=== PATIENT | female | born 1965 | race Caucasian/White ===

== ENCOUNTER → 2017-01-24 | Outpatient (CLI) | payer OTHER ==
[~2017-01-24] MED LIST: ALPR-138 PO; BETH25TA3 PO; ESTR.1T TD; FERR324T4 PO; FIORTAB4 PO; NADO1TAB17 PO; OXYC-360 PO; SYNT25TA PO
[2017-01-24 09:54] LABS: HDL CHOLESTEROL 55.3 MG/DL (40.0-60.0)
== END ==
LOC: PLAB 07:30
PROVIDERS: ATTEND Family Medicine
DX: E78.5 Hyperlipidemia, unspecified (principal); E03.2 Hypothyroidism due to medicaments and other exogenous substances
CPT/HCPCS: 80061; 84443

== ENCOUNTER → 2017-02-09 | Outpatient (CLI) | payer OTHER ==
[2017-02-09 09:13] LABS: BASOPHIL # 0.1 TH/MM3 (0-0.2); BASOPHIL % 0.9 % (0.0-2.0); EOSINOPHIL # 0.2 TH/MM3 (0-0.4); EOSINOPHIL % 2.7 % (0.0-4.0); HEMATOCRIT 40.8 % (35.0-46.0); HEMO FLAGS DIFF FINAL; LYMPH % 45.2 % (9.0-44.0); MEAN CELL VOLUME 88.1 FL (80.0-100.0); MEAN CORPUSCULAR HEMOGLOBIN 28.9 PG (27.0-34.0); MEAN CORPUSCULAR HGB CONC 32.8 % (32.0-36.0); MONO % 6.2 % (0.0-8.0); PLATELET COUNT 323 TH/MM3 (150-450); RED BLOOD COUNT 4.63 MIL/MM3 (4.00-5.30); WHITE BLOOD COUNT 6.7 TH/MM3 (4.0-11.0)
[2017-02-09 10:43] LABS: CHLORIDE 105 MEQ/L (98-107); POTASSIUM 3.6 MEQ/L (3.5-5.1); SODIUM (NA) 140 MEQ/L (136-145)
[2017-02-09 11:33] LABS: ANION GAP 6 MEQ/L (5-15); AST (GOT) 30 U/L (15-37); BICARBONATE 28.7 MEQ/L (21.0-32.0); BLOOD UREA NITROGEN 22 MG/DL (7-18); GLOMERULAR FILTRATION RATE 78 ML/MIN (>89); GLUCOSE,FASTING 97 MG/DL (74-99)
[2017-02-09 11:38] LABS: ALKALINE PHOSPHATASE 81 U/L (45-117); ALT (GPT) 53 U/L (10-53); TOTAL BILIRUBIN ADULT 0.2 MG/DL (0.2-1.0)
== END ==
LOC: PLAB 07:35
PROVIDERS: ATTEND Family Medicine
DX: R53.81 Other malaise (principal); R53.83 Other fatigue
CPT/HCPCS: 36415; 80053; 85025

== ENCOUNTER 2017-04-21 13:43 | Emergency (ER) | payer OTHER ==
[~2017-04-21] VITALS: Ht 160 cm; Wt 70.4 kg
[2017-04-21 13:58] VITALS: BP 174/88; PULSE 97; RESP 16; O2SAT 100
--- NOTE | 2017-04-21 14:23 | PD ---
HPI Chief Complaint: Cardiac Complaint Time Seen by Provider: 13:58 Travel History International Travel<30 days: No Contact w/Intl Traveler<30days: No Traveled to known affect area: No History of Present Illness HPI Is a 51 year-old woman who presents to the emergency department complaining of palpitations. She is a history of anxiety and panic attacks. She feels knocked over the past 3 months or so. She states over the past 3 days she's had increased trouble palpitations. She takes propranolol for increased heart rate. She states she called [facility] this morning and they came out and checked. She had a heart rate of 127. Feeling generally worse including headaches, belly pains, and feeling sick. History Past Medical History Narrative Medical Panic attacks History rapid heart rate Low thyroid Migraines Social History Tobacco Use: No Allergies-Medications (Allergen,Severity, Reaction): Coded Allergies: Erythromycin (Verified Allergy, Severe, 04/21/17) Reported Meds & Prescriptions Reported Meds & Active Scripts Active Reported Xanax (Alprazolam) 0.5 Mg Tab 0.5 Mg PO Q8H PRN Lidocaine Viscous Liq 2 % Liqd 5 Ml SWISH-SWAL DIRECTED PRN Zovirax (Acyclovir) 800 Mg Tab 800 Mg PO TID Fioricet (Nhvcfngrbl-Pydlncthwrppj-Gdjvywun) 50-300-40 Mg Cap 1 Cap PO Q8HR PRN Norvasc (Amlodipine Besylate) 5 Mg Tab 5 Mg PO DAILY Urecholine (Bethanechol Chloride) 25 Mg Tab 12.5 Mg PO 5 TIMES A DAY Levothyroxine (Levothyroxine Sodium) 88 Mcg Tab 88 Mcg PO DAILY Propranolol (Propranolol HCl) 20 Mg Tab 20 Mg PO Q12HR Review of Systems Except as stated in HPI: all other systems reviewed are Neg Physical Exam Narrative GENERAL: Well-appearing 51-year-old woman, no acute distress. SKIN: Focused skin assessment warm/dry. HEAD: Atraumatic. Normocephalic. EYES: Pupils equal and round. No scleral icterus. No injection or drainage. ENT: No nasal bleeding or discharge. Mucous membranes pink and moist. NECK: Trachea midline. No JVD. CARDIOVASCULAR: Regular rate and rhythm. No murmur appreciated. RESPIRATORY: No accessory muscle use. Clear to auscultation. Breath sounds equal bilaterally. GASTROINTESTINAL: Abdomen soft, non-tender, nondistended. Hepatic and splenic margins not palpable. MUSCULOSKELETAL: No obvious deformities. No clubbing. No cyanosis. No edema. NEUROLOGICAL: Awake and alert. No obvious cranial nerve deficits. Motor grossly within normal limits. Normal speech. PSYCHIATRIC: Appropriate mood and affect; insight and judgment normal. Data Data Last Documented VS Vital Signs Date Time Temp Pulse Resp B/P Pulse Ox O2 Delivery O2 Flow Rate FiO2 04/21/17 14:13 71 16 99 Room Air 04/21/17 13:58 174/88 Orders Complete Blood Count With Diff (04/21/17 14:19) Comprehensive Metabolic Panel (04/21/17 14:19) Thyroid Stimulating Hormone (04/21/17 14:19) Iv Access Insert/Monitor (04/21/17 14:19) Electrocardiogram (04/21/17 ) Sodium Chlor 0.9% 1000 Ml Inj (Ns 1000 M (04/21/17 14:30) Alprazolam (Xanax) (04/21/17 14:30) Labs Laboratory Tests Test 04/21/17 13:00 White Blood Count 6.2 TH/MM3 Red Blood Count 5.12 MIL/MM3 Hemoglobin 14.5 GM/DL Hematocrit 44.0 % Mean Corpuscular Volume 85.8 FL Mean Corpuscular Hemoglobin 28.3 PG Mean Corpuscular Hemoglobin 33.0 % Concent Red Cell Distribution Width 12.1 % Platelet Count 447 TH/MM3 Mean Platelet Volume 7.7 FL Neutrophils (%) (Auto) 49.2 % Lymphocytes (%) (Auto) 38.2 % Monocytes (%) (Auto) 9.6 % Eosinophils (%) (Auto) 2.2 % Basophils (%) (Auto) 0.8 % Neutrophils # (Auto) 3.1 TH/MM3 Lymphocytes # (Auto) 2.4 TH/MM3 Monocytes # (Auto) 0.6 TH/MM3 Eosinophils # (Auto) 0.1 TH/MM3 Basophils # (Auto) 0.0 TH/MM3 CBC Comment DIFF FINAL Differential Comment Sodium Level 138 MEQ/L Potassium Level 3.4 MEQ/L Chloride Level 103 MEQ/L Carbon Dioxide Level 27.5 MEQ/L Anion Gap 8 MEQ/L Blood Urea Nitrogen 12 MG/DL Creatinine 0.97 MG/DL Estimat Glomerular Filtration 60 ML/MIN Rate Random Glucose 106 MG/DL Calcium Level 9.2 MG/DL Total Bilirubin 0.2 MG/DL Aspartate Amino Transf 17 U/L (AST/SGOT) Alanine Aminotransferase 22 U/L (ALT/SGPT) Alkaline Phosphatase 65 U/L Total Protein 7.9 GM/DL Albumin 4.2 GM/DL Thyroid Stimulating Hormone 1.570 uIU/ML 3rd Gen [facility] Medical Decision Making Medical Screen Exam Complete: Yes Emergency Medical Condition: Yes Interpretation(s) LABS: CBC is unremarkable. CMP is unremarkable. TSH is normal. Differential Diagnosis Anxiety, palpitations, hyperthyroid, ABNORMALITY, OTHER Narrative Course Medical decision-making 51 year-old woman with anxiety and palpitations. Looks well. We'll check her thyroid, electrolytes, give her some IV fluid. Outpatient follow-up. Diagnosis Primary Impression: Palpitations Additional Impression: Anxiety Additional Instructions: Follow-up with your primary doctor in 2-4 days. Return to the emergency department for any new or worsening symptoms. Med/Other Pt SpecificInfo: Prescription(s) given Disposition: 01 DISCHARGE HOME Condition: Stable Sandro Harmon MD Apr 21, 2017 14:23
[2017-04-21] MEDS ORDERED: SODIUM CHLOR 0.9% 1000 ML INJ 1,000 ML IV SCH (14:30)
[2017-04-21] MEDS ORDERED: ALPRAZolam 1 MG TAB PO ONE (14:30)
[2017-04-21] MEDS ORDERED: ALPRAZolam 0.5 MG TAB PO ONE (14:30)
[2017-04-21 14:31] LABS: AUTOMATED NEUTROPHIL # 3.1 TH/MM3 (1.8-7.7); BASOPHIL % 0.8 % (0.0-2.0); EOSINOPHIL # 0.1 TH/MM3 (0-0.4); EOSINOPHIL % 2.2 % (0.0-4.0); HEMO FLAGS DIFF FINAL; LYMPH % 38.2 % (9.0-44.0); LYMPHOCYTE # 2.4 TH/MM3 (1.0-4.8); MEAN CELL VOLUME 85.8 FL (80.0-100.0); MEAN CORPUSCULAR HEMOGLOBIN 28.3 PG (27.0-34.0); MONO % 9.6 % (0.0-8.0); NEUT % 49.2 % (16.0-70.0); PLATELET COUNT 447 TH/MM3 (150-450); RED BLOOD COUNT 5.12 MIL/MM3 (4.00-5.30); RED CELL DISTRIBUTION WIDTH 12.1 % (11.6-17.2); WHITE BLOOD COUNT 6.2 TH/MM3 (4.0-11.0)
[2017-04-21 14:41] LABS: CHLORIDE 103 MEQ/L (98-107); POTASSIUM 3.4 MEQ/L (3.5-5.1); SODIUM (NA) 138 MEQ/L (136-145)
[2017-04-21 14:45] LABS: ANION GAP 8 MEQ/L (5-15); BICARBONATE 27.5 MEQ/L (21.0-32.0); BLOOD UREA NITROGEN 12 MG/DL (7-18)
[2017-04-21] MEDS ORDERED: BUTA1CAP PO (14:46)
[2017-04-21] MEDS ORDERED: LEVO88TA2 PO (14:46)
[2017-04-21] MEDS ORDERED: ACYC-101 PO (14:46)
[2017-04-21] MEDS ORDERED: ALPR.5 PO (14:46)
[2017-04-21] MEDS ORDERED: AMLO5 PO (14:46)
[2017-04-21] MEDS ORDERED: PROP20TA3 PO (14:46)
[2017-04-21] MEDS ORDERED: LIDO1SOL8 SWISH-SWAL (14:46)
[2017-04-21] MEDS ORDERED: BETH25 PO (14:46)
[2017-04-21 14:48] LABS: ALT (GPT) 22 U/L (10-53); AST (GOT) 17 U/L (15-37); GLOMERULAR FILTRATION RATE 60 ML/MIN (>89)
[2017-04-21 14:49] LABS: TOTAL BILIRUBIN ADULT 0.2 MG/DL (0.2-1.0)
[2017-04-21 14:51] LABS: ALKALINE PHOSPHATASE 65 U/L (45-117)
[2017-04-21 15:50] VITALS: BP 111/69
--- NOTE | 2017-04-22 15:00 | EKG ---
Date Performed: 04/21/2017 Time Performed: 13:51:11 PTAGE: 51 years EKG: Sinus rhythm NONSPECIFIC T-WAVE ABNORMALITY Compared to previous tracing, ST-T changes are new. BORDERLINE ECG IN TERPRETATION BASED ON A DEFAULT AGE OF 40 YEARS NO PREVIOUS TRACING DOCTOR: Azar Cantu Interpretating Date/Time 04/22/2017 14:58:08
== END 2017-04-21 16:05 | disposition home or self-care (01) ==
LOC: PHED 13:43
DX: R00.2 Palpitations (principal); F41.0 Panic disorder [episodic paroxysmal anxiety]; R10.9 Unspecified abdominal pain; R51 Headache
CPT/HCPCS: 80053; 84443; 85025; 93005; 96360; 99284; J7030

== ENCOUNTER 2017-05-17 20:20 | Emergency (ER) | payer OTHER ==
[~2017-05-17] VITALS: Ht 160 cm; Wt 68.0 kg
[~2017-05-17 20:20] MED LIST changes: +ACYC-101 PO; -ALPR-138 PO; +ALPR.5 PO; +AMLO5 PO; +BETH25 PO; -BETH25TA3 PO; +BUTA1CAP PO; -ESTR.1T TD; -FERR324T4 PO; -FIORTAB4 PO; +LEVO88TA2 PO; +LIDO1SOL8 SWISH-SWAL; -NADO1TAB17 PO; -OXYC-360 PO; +PROP20TA3 PO; -SYNT25TA PO
[2017-05-17 20:28] VITALS: BP 135/67; PULSE 78; RESP 20; TEMP 98.4; O2SAT 100
--- NOTE | 2017-05-17 20:33 | PD ---
HPI Chief Complaint: Cardiac Complaint Time Seen by Provider: 20:29 Travel History International Travel<30 days: No Contact w/Intl Traveler<30days: No Traveled to known affect area: No History of Present Illness HPI 51-year-old female here for evaluation of heart palpitations. The patient reports that today she has felt her heart racing, then slow down. She has had similar episodes in the past, and was seen in the emergency department last month for the same. 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 Mueller and is on propanolol. No known history of coronary artery disease. She also has history of anxiety and is on Xanax. She took a Xanax at around 4:00 PM today which seemed to improve her symptoms, however it around 7:00 PM her palpitations return. Currently she feels fine. No chest pain or dyspnea. No history of DVT or PE. No fevers or recent illness. PFSH Past Medical History Anxiety: Yes (severe panic/anxiety disorder) Heart Rhythm Problems: Yes (irregular heartbeat) Cardiovascular Problems: Yes (HTN, irreg heartburn) Diminished Hearing: No GERD: Yes Hypertension: Yes Thyroid Disease: Yes (hypothyroidism) Past Surgical History Hysterectomy: Yes (2006) Social History Alcohol Use: No Tobacco Use: No Substance Use: No Allergies-Medications (Allergen,Severity, Reaction): Coded Allergies: erythromycin base (Verified Allergy, Severe, 05/17/17) Reported Meds & Prescriptions Reported Meds & Active Scripts Active Reported Estrace Vaginal (Estradiol) 0.01% Cream 1 Appl VAGINAL HS Estradiol 0.5 Mg Tab 0.5 Mg PO DAILY Aspirin 81 Mg Chew 81 Mg CHEW DAILY Xanax (Alprazolam) 0.5 Mg Tab 0.5 Mg PO Q8H PRN Lidocaine Viscous Liq 2 % Liqd 5 Ml SWISH-SWAL DIRECTED PRN Zovirax (Acyclovir) 800 Mg Tab 800 Mg PO TID Fioricet (Hdnsyibkfe-Tqkewfwivxmsj-Wfioqnqo) 50-300-40 Mg Cap 1 Cap PO Q8HR PRN Norvasc (Amlodipine Besylate) 5 Mg Tab 5 Mg PO DAILY Urecholine (Bethanechol Chloride) 25 Mg Tab 12.5 Mg PO 5 TIMES A DAY Levothyroxine (Levothyroxine Sodium) 88 Mcg Tab 88 Mcg PO DAILY Propranolol (Propranolol HCl) 20 Mg Tab 20 Mg PO Q12HR Review of Systems Except as stated in HPI: all other systems reviewed are Neg Physical Exam Narrative GENERAL: Well-developed, well-nourished, comfortable, no acute distress SKIN: Focused skin assessment warm/dry. HEAD: Atraumatic. Normocephalic. EYES: Pupils equal and round. No scleral icterus. No injection or drainage. ENT: Mucous membranes pink and moist. NECK: Trachea midline. No JVD. CARDIOVASCULAR: Regular rate and rhythm. No murmur appreciated. Distal pulses brisk and equal bilaterally. RESPIRATORY: No accessory muscle use. Clear to auscultation. Breath sounds equal bilaterally. GASTROINTESTINAL: Abdomen soft, non-tender, nondistended. MUSCULOSKELETAL: No obvious deformities. No clubbing. No cyanosis. No edema. NEUROLOGICAL: Awake and alert. No obvious cranial nerve deficits. Motor grossly within normal limits. Normal speech. PSYCHIATRIC: Appropriate mood and affect; insight and judgment normal. Data Data Last Documented VS Vital Signs Date Time Temp Pulse Resp B/P (MAP) Pulse Ox O2 Delivery O2 Flow Rate FiO2 05/17/17 21:29 98.3 67 16 126/71 (89) 99 Room Air Orders Orders Basic Metabolic Panel (Bmp) (05/17/17 20:41) Ckmb (Isoenzyme) Profile (05/17/17 20:41) Complete Blood Count With Diff (05/17/17 20:41) Magnesium (Mg) (05/17/17 20:41) Prothrombin Time / Inr (Pt) (05/17/17 20:41) Act Partial Throm Time (Ptt) (05/17/17 20:41) Troponin I (05/17/17 20:41) Ecg Monitoring (05/17/17 20:41) Iv Access Insert/Monitor (05/17/17 20:41) Oximetry (05/17/17 20:41) Sodium Chloride 0.9% Flush (Ns Flush) (05/17/17 20:45) Potassium Chloride (Kcl) (05/17/17 22:00) Labs Laboratory Tests Test 05/17/17 21:00 White Blood Count 6.9 TH/MM3 Red Blood Count 4.43 MIL/MM3 Hemoglobin 13.4 GM/DL Hematocrit 38.8 % Mean Corpuscular Volume 87.7 FL Mean Corpuscular Hemoglobin 30.2 PG Mean Corpuscular Hemoglobin Concent 34.5 % Red Cell Distribution Width 13.1 % Platelet Count 354 TH/MM3 Mean Platelet Volume 7.5 FL Neutrophils (%) (Auto) 70.2 % Lymphocytes (%) (Auto) 23.0 % Monocytes (%) (Auto) 4.4 % Eosinophils (%) (Auto) 1.8 % Basophils (%) (Auto) 0.6 % Neutrophils # (Auto) 4.9 TH/MM3 Lymphocytes # (Auto) 1.6 TH/MM3 Monocytes # (Auto) 0.3 TH/MM3 Eosinophils # (Auto) 0.1 TH/MM3 Basophils # (Auto) 0.0 TH/MM3 CBC Comment DIFF FINAL Differential Comment Prothrombin Time 10.2 SEC Prothromb Time International Ratio 0.9 RATIO Activated Partial Thromboplast Time 27.5 SEC Blood Urea Nitrogen 17 MG/DL Creatinine 1.00 MG/DL Random Glucose 171 MG/DL Calcium Level 9.4 MG/DL Magnesium Level 2.4 MG/DL Sodium Level 141 MEQ/L Potassium Level 3.2 MEQ/L Chloride Level 106 MEQ/L Carbon Dioxide Level 27.0 MEQ/L Anion Gap 8 MEQ/L Estimat Glomerular Filtration Rate 58 ML/MIN Total Creatine Kinase 42 U/L Troponin I LESS THAN 0.02 NG/ML MDM Medical Decision Making Medical Screen Exam Complete: Yes Emergency Medical Condition: Yes Medical Record Reviewed: Yes Interpretation(s) EKG: Sinus, rate 78, leftward axis, normal intervals, nonspecific T-wave abnormality, no ST segment abnormality, unchanged from prior. Differential Diagnosis Palpitations, anxiety, electrolyte abnormality, ACS unlikely, PE unlikely Narrative Course Vital signs reviewed and are within normal limits. CBC is unremarkable. BMP is remarkable for potassium 3.2 which was replaced orally. Cardiac enzymes are negative. Patient was made aware of all findings. She is resting comfortably and states that she feels much better. Her symptoms are most likely related to anxiety. This point I believe she is stable for discharge home with outpatient follow-up with her primary care physician and her aquaculture and fisheries professor this week. She was informed on when to return to the emergency department. She verbalizes understanding and agreement with plan. Diagnosis Primary Impression: Palpitations Additional Impression: Hypokalemia Referrals: Implementation Analyst 3 days Primary Care Physician 3 days Additional Instructions: Follow-up with your primary care physician this week. Follow-up with your aquaculture and fisheries professor this week. Return to the emergency department for worsening symptoms or any other concerns. Disposition: 01 DISCHARGE HOME Condition: Stable Rafita Quintana MD May 17, 2017 20:33
[2017-05-17] MEDS ORDERED: SODIUM CHLORIDE 0.9% FLUSH 10 ML FLUSH IVF PRN (20:45)
[2017-05-17 21:10] LABS: AUTOMATED NEUTROPHIL # 4.9 TH/MM3 (1.8-7.7); BASOPHIL % 0.6 % (0.0-2.0); EOSINOPHIL # 0.1 TH/MM3 (0-0.4); EOSINOPHIL % 1.8 % (0.0-4.0); HEMATOCRIT 38.8 % (35.0-46.0); HEMO FLAGS DIFF FINAL; LYMPHOCYTE # 1.6 TH/MM3 (1.0-4.8); MEAN CELL VOLUME 87.7 FL (80.0-100.0); MEAN CORPUSCULAR HEMOGLOBIN 30.2 PG (27.0-34.0); MEAN CORPUSCULAR HGB CONC 34.5 % (32.0-36.0); MONO % 4.4 % (0.0-8.0); NEUT % 70.2 % (16.0-70.0); PLATELET COUNT 354 TH/MM3 (150-450); RED BLOOD COUNT 4.43 MIL/MM3 (4.00-5.30); RED CELL DISTRIBUTION WIDTH 13.1 % (11.6-17.2); WHITE BLOOD COUNT 6.9 TH/MM3 (4.0-11.0)
[2017-05-17 21:18] LABS: CHLORIDE 106 MEQ/L (98-107); POTASSIUM 3.2 MEQ/L (3.5-5.1); SODIUM (NA) 141 MEQ/L (136-145)
[2017-05-17 21:21] LABS: ANION GAP 8 MEQ/L (5-15); MAGNESIUM 2.4 MG/DL (1.5-2.5)
[2017-05-17 21:22] LABS: BLOOD UREA NITROGEN 17 MG/DL (7-18)
[2017-05-17] MEDS ORDERED: ESTR42.5V VAGINAL (21:23)
[2017-05-17] MEDS ORDERED: ESTR0.5T PO (21:23)
[2017-05-17] MEDS ORDERED: ASPI81CH CHEW (21:23)
[2017-05-17 21:24] LABS: APTT (PATIENT) 27.5 SEC (24.3-30.1); INTERNATIONAL NORMALIZED RATIO 0.9 RATIO; PROTHROMBIN TIME - PATIENT 10.2 SEC (9.8-11.6)
[2017-05-17 21:25] LABS: GLOMERULAR FILTRATION RATE 58 ML/MIN (>89)
[2017-05-17 21:29] VITALS: BP 126/71; PULSE 67; RESP 16; TEMP 98.3; O2SAT 99
[2017-05-17 21:31] LABS: CREATINE KINASE 42 U/L (26-192)
[2017-05-17] MEDS ORDERED: POTASSIUM CHLORIDE 20 MEQ CONTROLLED RELEASE TAB PO ONE (22:00)
[2017-05-17 22:31] VITALS: BP 113/55; TEMP 97.8
--- NOTE | 2017-05-18 14:39 | EKG ---
Date Performed: 05/17/2017 Time Performed: 20:32:45 PTAGE: 51 years EKG: Sinus rhythm NONSPECIFIC T-WAVE ABNORMALITY BORDERLINE ECG PREVIOUS TRACING : 04/21/[address]51 [address]-T abnormalities have slightly improved since the old tra cing. DOCTOR: Bryan Shaw Interpretating Date/Time 05/18/2017 14:34:28
== END 2017-05-17 22:32 | disposition home or self-care (01) ==
LOC: PHED 20:20
DX: R00.2 Palpitations (principal); E87.6 Hypokalemia; I10 Essential (primary) hypertension; K21.9 Gastro-esophageal reflux disease without esophagitis; R94.31 Abnormal electrocardiogram [ECG] [EKG]; I49.9 Cardiac arrhythmia, unspecified; E03.9 Hypothyroidism, unspecified
CPT/HCPCS: 80048; 82550; 83735; 84484; 85025; 85610; 85730; 93005; 99283

== ENCOUNTER → 2017-10-17 | Outpatient (CLI) | payer OTHER ==
[~2017-10-17] MED LIST changes: +ASPI-516 CHEW; +ESTR0.5T PO; +ESTR42.5V VAGINAL
[2017-10-17 13:28] LABS: AUTOMATED NEUTROPHIL # 4.3 TH/MM3 (1.8-7.7); BASOPHIL # 0.1 TH/MM3 (0-0.2); EOSINOPHIL # 0.1 TH/MM3 (0-0.4); EOSINOPHIL % 1.4 % (0.0-4.0); HEMATOCRIT 38.9 % (35.0-46.0); HEMOGLOBIN 13.5 GM/DL (11.6-15.3); LYMPH % 37.1 % (9.0-44.0); LYMPHOCYTE # 2.9 TH/MM3 (1.0-4.8); MEAN CELL VOLUME 86.8 FL (80.0-100.0); MEAN CORPUSCULAR HEMOGLOBIN 30.1 PG (27.0-34.0); MEAN CORPUSCULAR HGB CONC 34.7 % (32.0-36.0); MEAN PLATELET VOLUME 7.3 FL (7.0-11.0); MONOCYTE # 0.5 TH/MM3 (0-0.9); NEUT % 54.5 % (16.0-70.0); PLATELET COUNT 416 TH/MM3 (150-450); RED BLOOD COUNT 4.49 MIL/MM3 (4.00-5.30); WHITE BLOOD COUNT 7.9 TH/MM3 (4.0-11.0)
[2017-10-17 13:43] LABS: ALBUMIN 4.4 GM/DL (3.4-5.0); BICARBONATE 28.6 MEQ/L (21.0-32.0); BLOOD UREA NITROGEN 19 MG/DL (7-18); CALCIUM 9.1 MG/DL (8.5-10.1); CHLORIDE 103 MEQ/L (98-107); CHOLESTEROL 239 MG/DL (120-200); CREATININE 0.86 MG/DL (0.50-1.00); GLOMERULAR FILTRATION RATE 69 ML/MIN (>89); GLUCOSE,FASTING 86 MG/DL (74-99); SODIUM (NA) 138 MEQ/L (136-145); TRIGLYCERIDES 139 MG/DL (42-150)
[2017-10-17 13:54] LABS: ALKALINE PHOSPHATASE 71 U/L (45-117); ALT (GPT) 47 U/L (10-53); AST (GOT) 29 U/L (15-37); CHOLESTEROL/ HDL RATIO 4.64 RATIO; HDL CHOLESTEROL 51.5 MG/DL (40.0-60.0); LDL CHOLESTEROL 160 MG/DL (0-99); TOTAL BILIRUBIN ADULT 0.2 MG/DL (0.2-1.0); TOTAL PROTEIN 7.9 GM/DL (6.4-8.2)
== END ==
LOC: PLAB 10:22
PROVIDERS: ATTEND Family Medicine
DX: E78.5 Hyperlipidemia, unspecified (principal); I11.9 Hypertensive heart disease without heart failure; E03.2 Hypothyroidism due to medicaments and other exogenous substances; F41.0 Panic disorder [episodic paroxysmal anxiety]; I47.1 Supraventricular tachycardia; R53.1 Weakness
CPT/HCPCS: 36415; 80053; 80061; 84443; 85025